=== PATIENT | male | born 1980 | race Caucasian/White ===

== ENCOUNTER 2020-12-05 01:24 | Day surgery (SDCO) | payer OTHER ==
[2020-12-05 03:27] LABS: BASOPHIL 0.2 % (0-2); EOSINOPHIL 0.1 % (0-5); HCT 42.2 % (42.0-52.0); HGB 13.6 g/dl (13.2-18.0); LYMPHOCYTE 7.9 % (15-48); MCH 26.5 pg (25.0-31.0); MCHC 32.2 g/dL (32.0-36.0); MCV 82.3 fL (78.0-100.0); MONOCYTE 4.3 % (0-12); MPV 12.9 fL (6.0-9.5); NEUTROPHIL 87.3 % (41-80); NRBC 0; PLT 216 K/uL (150-400); RBC 5.13 M/uL (4.70-6.00); RDW 13.4 % (11.5-14.0); WBC 9.1 K/uL (4.0-10.5)
[2020-12-05 03:30] LABS: PROTHROMBIN TIME 13.5 SECONDS (11.4-13.6)
[2020-12-05 03:32] LABS: BILIRUBIN NEGATIVE (NEGATIVE); BLOOD NEGATIVE Ery/uL (NEGATIVE); CLARITY CLEAR (CLEAR); COLOR YELLOW (YELLOW); GLUCOSE (U) NORMAL (NORMAL); LEUKOCYTES NEGATIVE Leu/uL (NEGATIVE); NITRITE NEGATIVE (NEGATIVE); PROTEIN 2+ mg/dL (NEGATIVE); SPECIFIC GRAVITY 1.025 (1.001-1.030); UROBILINOGEN 0.2 mg/dL (0.2-1.0)
[2020-12-05 03:32] LABS: D-DIMER < 0.27 ug/mLFEU (0.00-0.41)
[2020-12-05 03:37] LABS: ECSTASY (MDMA) POSITIVE (NEGATIVE); MARIJUANA (THC) NEGATIVE (NEGATIVE)
[2020-12-05 03:38] LABS: AMPHETAMINES POSITIVE (NEGATIVE); BARBITURATES NEGATIVE (NEGATIVE); METHADONE NEGATIVE (NEGATIVE); OPIATES NEGATIVE (NEGATIVE); OXYCODONE NEGATIVE (NEGATIVE)
[2020-12-05 03:44] LABS: ALBUMIN 4.4 g/dL (3.4-5.0); ALKALINE PHOSHATASE 51 U/L (46-116); ALT 23 U/L (16-63); AST 27 U/L (15-37); BILIRUBIN - TOTAL 0.6 mg/dL (0.2-1.0); BUN 17 mg/dL (7-18); BUN/CREAT RATIO (CALC) 15.3 RATIO; CHLORIDE 100 mmol/L (98-107); CO2 (BICARBONATE) 26 mmol/L (21-32); CREATININE 1.11 mg/dL (0.67-1.17); GLOBULIN (CALCULATION) 4.7 g/dL; GLUCOSE 130 mg/dL (74-106); POTASSIUM 3.8 mmol/L (3.5-5.1); TOTAL PROTEIN 9.1 g/dL (6.4-8.2)
[2020-12-05 03:45] LABS: ACETAMINOPHEN (TYLENOL) < 2.0 ug/mL (10.0-30.0)
[2020-12-05 03:51] LABS: URINARY WBC RARE
[2020-12-05 03:52] LABS: SPERM PRESENT
--- NOTE | 2020-12-05 14:07 | NUR ---
12/05/20 Mr. Marques was admitted from the [facility]. He has been there since June 2020. 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 Mr. Marques relapsed last night and was admitted through the ED. - Mr. Marques said he would like to return to [facility] after some contemplation. [facility] will accept patient back pending review of the medical records. Records have been faxed with patient's permission.
--- NOTE | 2020-12-06 12:18 | NUR ---
PATIENT APPROACHED NURSES STATION ASKED FOR PAPER TO LEAVE THE HOSPITAL, PAPER GIVEN AND SIGNED AT 1036 PATIENT GIVEN A JACKET BY SS AND A VOUCHER FOR A CAB TO GET TO [facility].
== END 2020-12-06 10:40 | disposition left against medical advice (07) ==
LOC: FER 01:24 → FTCU 07:18
PROVIDERS: Emergency Medicine Emergency Medical Services; ADMIT Internal Medicine
DX: T43.621A Poisoning by amphetamines, accidental (unintentional), initial encounter (principal); I10 Essential (primary) hypertension; R00.0 Tachycardia, unspecified; F41.9 Anxiety disorder, unspecified; F15.10 Other stimulant abuse, uncomplicated; F31.9 Bipolar disorder, unspecified; K21.9 Gastro-esophageal reflux disease without esophagitis; F10.11 Alcohol abuse, in remission; Z79.899 Other long term (current) drug therapy; Z86.73 Personal history of transient ischemic attack (TIA), and cerebral infarction without residual deficits; Z87.891 Personal history of nicotine dependence; Z88.2 Allergy status to sulfonamides; Z20.822 Contact with and (suspected) exposure to COVID-19
CPT/HCPCS: 36415; 71045; 80053; 80305; 81001; 82550; 84443; 84484; 85025; 85379; 85610; 85730; 93005; G0257; G0378; G0480; J1650; J1885; J2060; J3360; J7030; U0002

== ENCOUNTER 2021-06-15 12:35 | Emergency (ER) | payer OTHER ==
[2021-06-15 14:18] LABS: BASOPHIL 0.3 % (0-2); EOSINOPHIL 9.8 % (0-5); HCT 40.3 % (42.0-52.0); HGB 12.8 g/dl (13.2-18.0); LYMPHOCYTE 15.7 % (15-48); MCH 26.1 pg (25.0-31.0); MCHC 31.8 g/dL (32.0-36.0); MCV 82.1 fL (78.0-100.0); MONOCYTE 8.5 % (0-12); MPV 10.9 fL (6.0-9.5); NEUTROPHIL 65.4 % (41-80); NRBC 0; PLT 238 K/uL (150-400); RBC 4.91 M/uL (4.70-6.00); RDW 13.2 % (11.5-14.0)
[2021-06-15 14:21] LABS: BILIRUBIN NEGATIVE (NEGATIVE); BLOOD NEGATIVE Ery/uL (NEGATIVE); CLARITY CLEAR (CLEAR); COLOR YELLOW (YELLOW); GLUCOSE (U) NORMAL (NORMAL); LEUKOCYTES NEGATIVE Leu/uL (NEGATIVE); NITRITE NEGATIVE (NEGATIVE); PROTEIN TRACE (LOW) mg/dL (NEGATIVE); pH 6.5 (5.0-9.0)
[2021-06-15 14:23] LABS: AMPHETAMINES NEGATIVE (NEGATIVE); BARBITURATES NEGATIVE (NEGATIVE); ECSTASY (MDMA) NEGATIVE (NEGATIVE); MARIJUANA (THC) NEGATIVE (NEGATIVE); METHADONE NEGATIVE (NEGATIVE); OPIATES NEGATIVE (NEGATIVE); OXYCODONE NEGATIVE (NEGATIVE)
[2021-06-15 14:28] LABS: BACTERIA TRACE
[2021-06-15 14:41] LABS: ACETAMINOPHEN (TYLENOL) < 2.0 ug/mL (10.0-30.0); BUN 16 mg/dL (7-18); BUN/CREAT RATIO (CALC) 19.8 RATIO; CHLORIDE 103 mmol/L (98-107); CO2 (BICARBONATE) 31 mmol/L (21-32); CREATININE 0.81 mg/dL (0.67-1.17); GLUCOSE 100 mg/dL (74-106); POTASSIUM 3.5 mmol/L (3.5-5.1)
[2021-06-15 14:54] LABS: CORONAVIRUS 2019 SARS-COV-2 NEGATIVE (NEGATIVE); INFLUENZA A NAA NEGATIVE (NEGATIVE)
[2021-06-15] MEDS ORDERED: CEPHALEXIN500 MG PO (18:36)
== END 2021-06-15 18:40 | disposition other institution (70) ==
LOC: FER 12:35
PROVIDERS: Nurse Practitioner Family
DX: R45.851 Suicidal ideations (principal); F19.10 Other psychoactive substance abuse, uncomplicated; L03.114 Cellulitis of left upper limb; L03.113 Cellulitis of right upper limb; R23.4 Changes in skin texture; Z20.822 Contact with and (suspected) exposure to COVID-19; Z88.2 Allergy status to sulfonamides
CPT/HCPCS: 36415; 80048; 80305; 81001; 85025; 99285; G0480; U0002